=== PATIENT | male | born 1950 ===

== ENCOUNTER 2020-06-02 18:31 | Emergency (ER) | payer MEDICARE ==
[2020-06-03 01:22] LABS: SARS-CoV-2 MS2 Positive; SARS-CoV-2 N Gene Negative; SARS-CoV-2 S Gene Negative; SARS-CoV-2 by NAA Not Detected (NotDetected); SARS-CoV-2 orf1ab Negative
== END 2020-06-02 19:01 | disposition home or self-care (01) ==
LOC: ERS 18:31
DX: Z20.828 Contact with and (suspected) exposure to other viral communicable diseases (principal); I10 Essential (primary) hypertension; F17.210 Nicotine dependence, cigarettes, uncomplicated
CPT/HCPCS: 99283; U0003; 87635